=== PATIENT | female | born 1965 | race Asian ===

== ENCOUNTER → 2018-01-17 | Day surgery (SDC) | payer BC ==
[~2018-01-17] VITALS: Ht 154.9 cm; Wt 47.2 kg
[~2018-01-17] MED LIST: ACETAMINOPHEN 1000 MG/100 ML 100 ML IV ONE; CONJ1TAB PO; DEXAMETHASONE SOD PHOS 4 MG/ML VIAL IV ONE; DO NOT ADM ANY ANTICOAGULANT DRUGS PRN; LACTATED RINGER'S 1000 ML INJ 1,000 ML IV ONE; LIDOCAINE HCL 1% PF 5 ML SYRINGE OTHER ONE; MEPERIDINE HCL 50 MG/ML VIAL IM ONE; MIDAZOLAM HCL 2 MG/2 ML VIAL ONE; NAPR500T2 PO; ONDANSETRON HCL 4 MG/2 ML VIAL IV ONE; ONDANSETRON HCL 4 MG/2 ML VIAL IV PUSH PRN; OXYC1TAB63 PO; PATIENT OWN MEDICATION PO SCH; PROPOFOL 200 MG/20 ML AMP IV ONE; ceFAZolin 2 GM PREMIX 50 ML ONE; ePHEDrine/NS 25 MG/5 ML SYRINGE IV ONE; oxyCODONE/ACETAMINOPHEN 5 MG/325 MG TAB PO PRN
[2018-01-17 08:17] VITALS: PULSE 55
[2018-01-17 08:35] LABS: HEMOGLOBIN 13.6 GM/DL (11.6-15.3); MEAN CELL VOLUME 89.8 FL (80.0-100.0); MEAN CORPUSCULAR HEMOGLOBIN 30.5 PG (27.0-34.0); MEAN PLATELET VOLUME 7.7 FL (7.0-11.0); PLATELET COUNT 226 TH/MM3 (150-450); RED BLOOD COUNT 4.46 MIL/MM3 (4.00-5.30); RED CELL DISTRIBUTION WIDTH 13.4 % (11.6-17.2); WHITE BLOOD COUNT 9.8 TH/MM3 (4.0-11.0)
[2018-01-17 08:45] LABS: PROTHROMBIN TIME - PATIENT 10.2 SEC (9.8-11.6)
[2018-01-17 10:03] LABS: BICARBONATE 26.7 MEQ/L (21.0-32.0); CALCIUM 8.4 MG/DL (8.5-10.1); CREATININE 0.5 MG/DL (0.50-1.00)
--- NOTE | 2018-01-17 12:08 | RADRPT ---
EXAM DATE/TIME: 01/17/2018 11:36 [facility] COMPARISON: No previous studies available for comparison. INDICATIONS : ORIF lt patella. MEDICAL HISTORY : None. SURGICAL HISTORY : None. ENCOUNTER: Initial ACUITY: 1 day PAIN SCORE: Non-responsive. LOCATION: Left Knee FINDINGS: Status post internal fixation of the patella. There is good position and alignment of the bony struct ures. The 2 internal fixation screws are grossly intact. CONCLUSION: Good position and alignment on this postoperative study. Denilson Tesfaye MD on January 17, 2018 at 12:06 Board Certified Radiologist. This report was verified electronically.
[2018-01-17 12:19] VITALS: PULSE 75
--- NOTE | 2018-01-17 12:47 | EKG ---
Date Performed: 01/17/2018 Time Performed: 08:27:44 PTAGE: 52 years EKG: SINUS BRADYCARDIA BORDERLINE ECG NO PREVIOUS TRACING DOCTOR: Gagan Pena Interpretating Date/Time 01/17/2018 12:45:36
[2018-01-17 13:15] VITALS: BP 117/67; PULSE 66; RESP 20; O2SAT 100
--- NOTE | 2018-01-19 09:19 | MH ---
cc: Michael COVARRUBIAS M.D. DATE OF ADMISSION: 01/17/2018 ADMITTING DIAGNOSIS Displaced fracture, closed, left patella; now for open reduction, internal fixation. HISTORY OF PRESENT ILLNESS This pleasant 52-year-old female is seen today following a trip and fall on 01/16/2018 in which she injured her left patella for which she is having surgical intervention. PAST MEDICAL HISTORY Osteoporosis, for which she takes . PAST SURGICAL HISTORY 1. Hernia repair. 2. . REVIEW OF SYSTEMS Noncontributory. FAMILY HISTORY Noncontributory. SOCIAL HISTORY She does not smoke or drink. ALLERGIES No known allergies. PHYSICAL EXAMINATION GENERAL: We find a 52-year-old female, well-developed, well-nourished, oriented x3, complaining of pain in her left knee. VITAL SIGNS: Blood pressure 122/80, pulse 64 and regular, respirations 16, temperature 97.8, pulse oximetry 98% on room air. HEENT: Eyes PERRLA, EOMI. Ears, nose and mouth clear. NECK: Supple. LUNGS: Clear. HEART: Regular rate. ABDOMEN: Soft. Positive bowel sounds. Nontender. EXTREMITIES: The left knee is tender over the patella. Neurovascularly intact to her toes. IMPRESSION The impression at this time is displaced patella fracture, left knee. PLAN The plan is admission for open reduction, internal fixation of a left patella fracture today. The patient has Percocet for postoperative pain control and plans on going home after surgical stay in the hospital. Michael Covarrubias MD JRMalachi/SUDHEER /1:04 PM /9:11 AM
--- NOTE | 2018-01-19 14:33 | MP ---
cc: Michael COVARRUBIAS M.D. DATE OF SURGERY: 01/17/2018. PREOPERATIVE DIAGNOSIS: Closed displaced fracture transverse left patella. POSTOPERATIVE DIAGNOSIS: Closed displaced fracture transverse left patella. OPERATIVE PROCEDURE PERFORMED: Open reduction internal fixation of left patella fracture. SURGEON: Michael Covarrubias MD. TOURIST CABIN KEEPER: Wilton Diallo CST. ANESTHESIA: General intubation. DESCRIPTION OF THE PROCEDURE IN DETAIL: The patient was brought to the operating room and placed on the operating table in the supine position. After successful induction of general anesthesia, the patient's left knee was prepped and draped in the usual manner. A longitudinal incision midline was then made over the patella 6 inches in length and carried down through the subcutaneous tissue to expose the fracture of the patella, which was debrided and the hematoma inside the knee was removed using suction and then irrigating copiously with antibiotic solution. Excess fluid removed. The fracture curetted and reduced and held reduced while two 4.0 cannulated Synthes screws were inserted by putting guidewires in parallel fashion from distal to proximal measuring the length and then pre-drilling the proximal cortex and then inserting the 134 mm and 132 mm screws. Those screws were tightened and then fixation was supplemented by doing [id number] wiring using #2 FiberWire which was passed through the screws. AP and lateral views by C-arm revealed excellent reduction of the fracture. The wound was irrigated copiously with antibiotic solution and meticulous hemostasis achieved. Subcutaneous tissue approximated using interrupted and running 2-0 and 4-0 Monocryl sutures. Steri-Strips and sterile dressing and a fracture brace locked at 10 degrees of extension. No drain utilized. Estimated blood loss 50 mL. Sponge and needle counts were correct. The patient tolerated the procedure well and left the operating room in satisfactory condition. MD JOSE A Castillo/JULIANE /11:48 AM /2:24 PM
== END | disposition home or self-care (01) ==
LOC: HSDC 07:42
PROVIDERS: ATTEND Surgery
DX: S82.032A Displaced transverse fracture of left patella, initial encounter for closed fracture (principal); M81.0 Age-related osteoporosis without current pathological fracture; M25.562 Pain in left knee; W01.0XXA Fall on same level from slipping, tripping and stumbling without subsequent striking against object, initial encounter; Z01.810 Encounter for preprocedural cardiovascular examination; Z01.818 Encounter for other preprocedural examination
CPT/HCPCS: 01392; 27524; 73560; 76000; 80048; 85027; 85610; 85730; 93005; J0690; J1100; J2175; J2250; J2405; J3010; J7120